=== PATIENT | female | born 1980 | race Caucasian/White ===

== ENCOUNTER 2019-08-17 18:10 | Emergency (ER) | payer SELFPAY ==
[~2019-08-17] VITALS: Ht 162.6 cm; Wt 56.2 kg
[2019-08-17 18:14] VITALS: BP 118/83
--- NOTE | 2019-08-17 18:51 | NUR ---
ER PROVIDER USED CHRONIC CARE NURSE TO TALK WITH PT ABOUT REASON FOR VISIT AND EXAM COMPLETED. PT STATES TYPE I DIABETES BUT HAS NOT TAKEN MEDS FOR 3 YEARS. PT C/O FATIGUE FOR 2 WEEKS. EKG COMPLETED AND ONTO MONITOR.
--- NOTE | 2019-08-17 18:57 | NUR ---
REPORT TO KARIN ALEXANDRA
[2019-08-17 19:10] LABS: BASOPHILS # (AUTO) 0.04 x10^3/uL (0-0.1); BASOPHILS % (AUTO) 1 % (0-1); EOSINOPHILS # (AUTO) 0.01 x10^3/uL (0-0.4); EOSINOPHILS % (AUTO) 0 % (1-7); LYMPHOCYTES # (AUTO) 2.45 x10^3/uL (1-3.4); LYMPHOCYTES % (AUTO) 28 % (22-44); MD NO; MEAN CORPUSCULAR HEMOGLOBIN 30.2 pg (27.0-34.8); MEAN CORPUSCULAR HGB CONC 33.6 g/dL (32.4-35.8); MEAN PLATELET VOLUME 9.1 fL (7.4-10.4); MONOCYTES # (AUTO) 0.58 x10^3/uL (0.2-0.8); MONOCYTES % (AUTO) 7 % (2-9); NEUTROPHILS # (AUTO) 5.68 x10^3/uL (1.8-6.8); NEUTROPHILS % (AUTO) 65 % (42-75); PLATELET COUNT 250 x10^3/uL (130-400); RED BLOOD COUNT 4.76 x10^6/uL (3.82-5.3); RED CELL DISTRIBUTION WIDTH 12.2 % (9.6-15.2)
[2019-08-17 19:17] LABS: HCG UR SG 1.026 (1.003-1.030); MICROSCOPIC NOT IND
[2019-08-17 19:18] LABS: ALANINE AMINOTRANSFERASE 23 U/L (12-78); ALBUMIN 3.4 g/dL (3.4-5.0); ANION GAP 7 mmol/L (5-15); CALCIUM 8.4 mg/dL (8.5-10.1); CHLORIDE 100 mmol/L (98-107)
[2019-08-17 19:21] LABS: ALKALINE PHOSPHATASE 81 U/L (45-117); BILIRUBIN,TOTAL 1.1 mg/dL (0.2-1.0); TOTAL PROTEIN 6.7 g/dL (6.4-8.2)
== END 2019-08-17 20:10 | disposition home or self-care (01) ==
LOC: ED 19:55
DX: E11.65 Type 2 diabetes mellitus with hyperglycemia (principal); R53.1 Weakness; R53.83 Other fatigue; R94.31 Abnormal electrocardiogram [ECG] [EKG]; Z76.0 Encounter for issue of repeat prescription
CPT/HCPCS: 36415; 80053; 81003; 81025; 85025; 93005; 99284